=== PATIENT | female | born 1960 | race Caucasian/White ===

== ENCOUNTER 2021-02-14 12:32 | Outpatient (RCR) | payer OTHER, SELFPAY | END 2021-02-19 13:33 | disposition home or self-care (01) | LOC: HO.WCC 12:32 | PROVIDERS: Visit Provider Physician Assistant | DX: E11.628 Type 2 diabetes mellitus with other skin complications (principal); E11.51 Type 2 diabetes mellitus with diabetic peripheral angiopathy without gangrene; L03.116 Cellulitis of left lower limb; Z79.2 Long term (current) use of antibiotics; I10 Essential (primary) hypertension; L53.9 Erythematous condition, unspecified; S80.822A Blister (nonthermal), left lower leg, initial encounter | CPT/HCPCS: 99212 ==